=== PATIENT | male | born 1955 | race Caucasian/White ===

== ENCOUNTER 2019-09-08 07:45 | Day surgery (SDC) | payer BC ==
[2019-09-05 11:51] VITALS: BMI 29.2
[2019-09-08] MEDS ORDERED: LIDOCAINE HCL/PF 2% SDV 5ML VIAL ONE (08:07)
[2019-09-08] MEDS ORDERED: PROPOFOL 20 ML ONE ×2 (08:07)
[2019-09-08 09:08] VITALS: TEMP 97.8
[2019-09-08 11:39] VITALS: BP 110/61; PULSE 69
--- NOTE | 2019-09-10 12:48 | PATH ---
Surgical Pathology Report Patient Name: ELDA FIELDS [facility] Rec. #: [id number] /Age/Gender: 1955 (Age: 64) / M Account: [id number] Location: [facility] Taken: 09/08/2019 Received: 09/08/2019 Reported: 09/10/2019 Physicians: Canelo Valencia M.D. Specimen(s) Received A: SECOND PORTION OF DUODENUM B: ANTRUM Clinical History GERD, screening Postoperative diagnosis: Gastritis, duodenitis, few diverticuli Final Diagnosis A. SECOND PORTION OF DUODENUM, BIOPSY: MILD CHRONIC DUODENITIS. B. GASTRIC ANTRUM, BIOPSY: MILD CHRONIC GASTRITIS WITH FEATURES OF REACTIVE GASTROPATHY. IMMUNOSTAIN IS NEGATIVE FOR H. PYLORI ORGANISMS. Electronically Signed Camryn Crane M.D. Gross Description A. Received in formalin, labeled "biopsy second portion of duodenum" are 2 yepez, irregular portions of soft tissue measuring 0.1 and 0.3 cm. in greatest dimension. The specimens are submitted in toto in one cassette. B. Received in formalin, labeled "biopsy gastric antrum" are 3 yepez, irregular portions of soft tissue ranging from 0.1-0.4 cm. in greatest dimension. The specimens are submitted in toto in one cassette. 09/09/2019 [facility]09/09/2019
== END 2019-09-08 09:45 | disposition home or self-care (01) ==
LOC: FASU-ENDO 07:45
PROVIDERS: ATTEND Internal Medicine Gastroenterology
PROC: 0DB98ZX Excision of Duodenum, Via Natural or Artificial Opening Endoscopic, Diagnostic (ICD-10-PCS; 2019-09-08)
PROC: 0DB78ZX Excision of Stomach, Pylorus, Via Natural or Artificial Opening Endoscopic, Diagnostic (ICD-10-PCS; 2019-09-08)
PROC: 0DJD8ZZ Inspection of Lower Intestinal Tract, Via Natural or Artificial Opening Endoscopic (ICD-10-PCS; principal; 2019-09-08 08:30)
DX: Z12.11 Encounter for screening for malignant neoplasm of colon (principal); K57.30 Diverticulosis of large intestine without perforation or abscess without bleeding; K29.80 Duodenitis without bleeding; K29.50 Unspecified chronic gastritis without bleeding; K31.9 Disease of stomach and duodenum, unspecified
CPT/HCPCS: 88305-TC; 88342-TC

== ENCOUNTER 2021-01-03 17:56 | Emergency (ER) | payer BC ==
[2021-01-03 18:07] VITALS: BP 134/77; PULSE 58; TEMP 98.9; BMI 29.5
[2021-01-03] MEDS ORDERED: DIPHTH,PERTUSS(ACELL),TET 0.5 ML DISP.SYRIN IM ONE ×2 (18:09→18:25)
== END 2021-01-03 19:06 | disposition home or self-care (01) ==
LOC: FER 17:56
PROC: 0HQGXZZ Repair Left Hand Skin, External Approach (ICD-10-PCS; principal; 2021-01-03)
PROC: 3E0234Z Introduction of Serum, Toxoid and Vaccine into Muscle, Percutaneous Approach (ICD-10-PCS; 2021-01-03)
DX: S61.215A Laceration without foreign body of left ring finger without damage to nail, initial encounter (principal)
CPT/HCPCS: 73130-TC-LT-FY; 90715; 99284-25

== ENCOUNTER 2021-01-13 22:22 | Emergency (ER) | payer BC ==
[2021-01-13 22:25] VITALS: BP 134/77; PULSE 100; TEMP 98.8; BMI 29.5
== END 2021-01-13 22:31 | disposition home or self-care (01) ==
LOC: FER 22:22
DX: Z48.02 Encounter for removal of sutures (principal)
CPT/HCPCS: 99281-25